=== PATIENT | male | born 1965 | race Caucasian/White ===

== ENCOUNTER 2019-03-13 17:40 | Emergency (ER) | payer MEDICAID, OTHER ==
[~2019-03-13] VITALS: Ht 157.5 cm; Wt 59.3 kg
[~2019-03-13 17:40] MED LIST: CEPH-443 PO; HYDR-4011 PO; IBUP-1542 PO; PRED20TA PO
[2019-03-13 18:16] VITALS: BP 177/101; PULSE 70; RESP 20; Ht 157.5 cm; Wt 59.3 kg
== END 2019-03-13 18:48 | disposition home or self-care (01) ==
LOC: E/R 17:40
DX: M70.32 Other bursitis of elbow, left elbow (principal); Y93.9 Activity, unspecified
CPT/HCPCS: 99283